=== PATIENT | female | born 2000 | race Caucasian/White ===

== ENCOUNTER 2025-03-05 17:59 | Outpatient (CLI) | payer BC, SELFPAY ==
[2025-03-05 21:29] LABS: Chlamydia DNA Amplified* NOT DETECTED (No Detected); GC DNA Amplified* NOT DETECTED (No Detected)
[2025-03-09 10:53] LABS: Pap Test Digital Imaging Done; Pap Test Reviewed by Path Done
== END 2025-03-05 18:00 | disposition home or self-care (01) ==
PROVIDERS: PCP Pediatrics; Visit Provider Physician Assistant
DX: Z11.3 Encounter for screening for infections with a predominantly sexual mode of transmission (principal); Z12.4 Encounter for screening for malignant neoplasm of cervix
CPT/HCPCS: 87491; 87591; 87624; 87625; 88141; 88142; 88175